=== PATIENT | female | born 1995 | race Caucasian/White ===

== ENCOUNTER 2021-10-06 17:53 | Inpatient (IN) | payer BC, MEDICAID ==
[2021-10-06] MEDS ORDERED: Calcium Gluc 4.6 MEQ/10 ML (100 MG/ML) SLOW IVP PRN (18:08)
[2021-10-06] MEDS ORDERED: Ondansetron PF 4 MG/2 ML Vial IVP PRN (18:08)
[2021-10-06] MEDS ORDERED: Promethazine HCl 25 MG/ML VIAL IM PRN (18:08)
[2021-10-06] MEDS ORDERED: Betamet Acet/Betamet Na Ph 30 MG/5 ML VIAL ONE (18:29)
[2021-10-06] MEDS ORDERED: Betamet Acet/Betamet Na Ph 30 MG/5 ML VIAL IM SCH (18:30)
[2021-10-06] MEDS ORDERED: Bicitra 30 ML UDCUP PO PRN (18:31)
[2021-10-06] MEDS ORDERED: Famotidine/PF 20 mg/2ml Vial SLOW IVP PRN (18:31)
[2021-10-06] MEDS ORDERED: Lactated Ringer's 1,000 ML IV SCH (18:45)
[2021-10-06] MEDS ORDERED: ceFAZolin 2 GM/Dextrose 50 ML 2 GM in Premix Bag 1 BAG IVPB SCH (18:45)
[2021-10-06] MEDS ORDERED: Labetalol HCl 100 MG/20 ML VIAL ONE ×2 (18:45→19:58)
[2021-10-06] MEDS ORDERED: Magnesium Sulfate 20 GM/WATER 500 ML BAG IVPB SCH (19:00)
[2021-10-06 19:06] LABS: Bilirubin Neg (Negative); Blood, Urine 50 (Negative); Clarity Clear (Clear); Glucose, Urine (Dipstick) 50 mg/dL (Negative); Ketone, Urine 5 mg/dL (Negative); Leukocyte Negative (Negative); Nitrite Negative (Negative); Protein, Urine (Dipstick) 100 mg/dl (Neg-Trace); Urobilinogen Normal mg/dL (Less than 2)
[2021-10-06 19:12] LABS: Squamous Epithelial 0-3 HPF (0-3); WBC/HPF 0-3 HPF (0-3)
[2021-10-06 19:13] LABS: Amphetamine Detected (NotDetected); Bacteria/HPF None Seen HPF (None Seen); Barbiturates Screen Not Detected (NotDetected); Benzodiazepine Screen Not Detected (NotDetected); Cocaine Metabolite Screen Not Detected (NotDetected); Methadone Not Detected (NotDetected); Methamphetamine Detected (NotDetected); Opiate Screen Not Detected (NotDetected); Oxycodone Screen Not Detected (NotDetected); Phencyclidine (PCP) Not Detected (NotDetected); THC/Cannabinoid Screen Not Detected (NotDetected); Tricyclic Screen Not Detected (NotDetected)
[2021-10-06 19:16] LABS: %Basophils 0.3 % (0.0-2.0); %Eosinophils 0.3 % (0.0-6.0); %Lymphocytes 7.5 % (18.0-47.0); %Monocytes 6.5 % (0.0-10.0); %Neutrophils 84.3 % (40.0-75.0); Hemoglobin 11.5 g/dL (12.0-15.5); Mean Corpuscular HGB CONC 33.8 g/dL (32.0-36.0); Mean Corpuscular Hemoglobin 27.9 pg (27.0-33.0); Mean Corpuscular Volume 82.5 fl (81.6-98.3); Mean Platelet Volume 12.1 fl (7.4-10.4); Platelet Count 205 10x3/uL (150-450); RBC Distribution Width 14.3 % (11.5-14.5); Red Blood Cell (RBC) Count 4.12 10x6/uL (3.90-5.03); White Blood Cell (WBC) Count 15.4 10x3/uL (3.5-10.5)
[2021-10-06 19:24] LABS: Creatinine, Urine 36.07 mg/dL (47-110)
[2021-10-06 19:44] LABS: ALT (SGPT) 13 U/L (8-55); AST (SGOT) 33 U/L (5-34); Alkaline Phosphatase 237 U/L (40-110); Anion Gap 14 mmol/L (10-20); BUN (Urea Nitrogen) 7 mg/dL (7.0-18.7); Bilirubin, Total 0.2 mg/dL (0.2-1.2); Calc. Creatinine Clearance 0 mL/min (70-130); Calcium 8.9 mg/dL (7.8-10.44); Carbon Dioxide 15 mmol/L (22-29); Chloride 107 mmol/L (98-107); Globulin 3.7 g/dL (2.4-3.5); Glucose 143 mg/dL (70-105); Potassium 3.4 mmol/L (3.5-5.1); Protein, Total 6.7 g/dL (6.0-8.3); Sodium 133 mmol/L (136-145)
[2021-10-06] MEDS ORDERED: Labetalol HCl 100 MG/20 ML VIAL SLOW IVP PRN (19:56)
[2021-10-06 20:02] LABS: HIV (1/2) Antibody/Antigen Non-Reactive (NonReactive); HIV 1/2 INDEX 0.06 S/CO (<1.00); Syphilis Antibody Nonreactive (Nonreactive); Syphilis Antibody Index 0.02 S/CO (<1.00 Non-Reactive)
[2021-10-06 20:22] LABS: Hep B Surf Ag Non-Reactive S/CO (NonReactive)
[2021-10-06 20:26] LABS: HBSAg Index 0.17 S/CO (0-0.99)
[2021-10-06 20:44] VITALS: BMI 46.8
[2021-10-06] MEDS: hydrALAZINE 20 MG/ML VIAL SLOW IVP PRN (22:08)
[2021-10-06 22:10] LABS: SARS-CoV-2 NAA Rapid Test Not Detected (NotDetected)
[2021-10-07] MEDS ORDERED: ceFAZolin 2 GM/Dextrose 50 ML IVPB ONE (05:58)
[2021-10-07] MEDS ORDERED: Misoprostol 200 MCG TAB PR PRN (06:44)
[2021-10-07] MEDS ORDERED: Carboprost 250 MCG/ML AMP IM SCH (06:45)
[2021-10-07] MEDS ORDERED: Tranexamic Acid 1,000 MG in Sodium Chloride 0.9% 250 ML 250 ML IVPB PRN ×2 (06:47→07:02)
[2021-10-07] MEDS ORDERED: NS w/ Oxytocin 30 units 1,000 ML IVPB SCH (07:00)
[2021-10-07 07:29] LABS: #Monocytes 0.5 10x3/uL (0.0-1.1); #Neutrophils 10.9 10x3/uL (1.5-8.4); %Basophils 0.1 % (0.0-2.0); %Lymphocytes 11.2 % (18.0-47.0); %Monocytes 3.9 % (0.0-10.0); %Neutrophils 83.9 % (40.0-75.0); Hemoglobin 10.3 g/dL (12.0-15.5); Mean Corpuscular HGB CONC 32.5 g/dL (32.0-36.0); Mean Corpuscular Hemoglobin 27.5 pg (27.0-33.0); Mean Corpuscular Volume 84.8 fl (81.6-98.3); Mean Platelet Volume 12.5 fl (7.4-10.4); Platelet Count 211 10x3/uL (150-450); RBC Distribution Width 14.6 % (11.5-14.5); Red Blood Cell (RBC) Count 3.74 10x6/uL (3.90-5.03); White Blood Cell (WBC) Count 12.9 10x3/uL (3.5-10.5)
[2021-10-07 07:32] LABS: INR-International Normal Ratio 0.9; PTT 27.7 sec (22.0-33.0); Prothrombin Time 10.4 sec (9.5-12.1)
[2021-10-07] MEDS ORDERED: Lidocaine 1% (PF) 30 ML VIAL SC PRN (07:32)
[2021-10-07 07:36] LABS: ALT (SGPT) 13 U/L (8-55); AST (SGOT) 31 U/L (5-34); Albumin 2.8 g/dL (3.5-5.0); Alkaline Phosphatase 182 U/L (40-110); Anion Gap 16 mmol/L (10-20); BUN (Urea Nitrogen) 9 mg/dL (7.0-18.7); Bilirubin, Total 0.3 mg/dL (0.2-1.2); Calc. Creatinine Clearance 231 mL/min (70-130); Calcium 8.4 mg/dL (7.8-10.44); Carbon Dioxide 15 mmol/L (22-29); Chloride 110 mmol/L (98-107); Globulin 3.4 g/dL (2.4-3.5); Glucose 108 mg/dL (70-105); Potassium 3.8 mmol/L (3.5-5.1); Protein, Total 6.2 g/dL (6.0-8.3); Sodium 137 mmol/L (136-145)
[2021-10-07] MEDS ORDERED: Penicillin G Potassium 5 MILL.UNITS VIAL ONE (07:43)
[2021-10-07] MEDS ORDERED: Penicillin G Potassium 5 MILL.UNITS in Sodium Chloride 0.9% 100 ML IVPB SCH (07:45)
[2021-10-07] MEDS ORDERED: NS w/ Oxytocin 30 units 500 ML IV SCH (07:45)
[2021-10-07] MEDS: Labetalol 100 MG TAB PO SCH ×2 (08:45→09:26)
[2021-10-07] MEDS: hydrALAZINE 20 MG/ML VIAL SLOW IVP PRN (09:46)
[2021-10-07 10:11] LABS: Troponin I 0.063 ng/mL (< 0.028)
[2021-10-07] MEDS ORDERED: Misoprostol 100 MCG TAB ONE (10:13)
[2021-10-07] MEDS ORDERED: Bicitra 30 ML UDCUP PO PRN (10:49)
[2021-10-07] MEDS ORDERED: Famotidine/PF 20 mg/2ml Vial SLOW IVP PRN (10:49)
[2021-10-07 10:50] LABS: Creatinine, Urine 147.66 mg/dL (47-110)
[2021-10-07] MEDS ORDERED: ceFAZolin 2 GM/Dextrose 50 ML 2 GM in Premix Bag 1 BAG IVPB SCH (11:00)
[2021-10-07] MEDS ORDERED: Dexamethasone 4 mg/ml Vial ONE (11:29)
[2021-10-07] MEDS ORDERED: Ondansetron PF 4 MG/2 ML Vial ONE (11:29)
[2021-10-07] MEDS ORDERED: Phenylephrine 10 MG/ML VIAL ONE (11:29)
[2021-10-07] MEDS ORDERED: Metoclopramide HCl 10 MG/2 ML VIAL ONE (11:29)
[2021-10-07] MEDS ORDERED: Oxytocin 10 UNITS/ML VIAL ONE (11:30)
[2021-10-07] MEDS ORDERED: Morphine PF 10 MG/10 ML VIAL ONE (11:39)
[2021-10-07] MEDS ORDERED: Penicillin G 2.5 MILL.units 2.5 MILL.UNITS in Premix Bag 1 BAG IVPB SCH (11:45)
[2021-10-07] MEDS ORDERED: Ketorolac Tromethamine 30 MG/ML VIAL ONE (12:40)
[2021-10-07 12:50] LABS: Critical Notified Whom: LABOR AND DELIVERY
[2021-10-07 12:51] LABS: Critical Notified Whom: LABOR AND DELIVERY
[2021-10-07] MEDS ORDERED: diphenhydrAMINE 50 MG/ML VIAL IVP PRN (12:54)
[2021-10-07] MEDS ORDERED: Promethazine HCl 25 MG/ML VIAL IM PRN (12:54)
[2021-10-07] MEDS ORDERED: Ondansetron PF 4 MG/2 ML Vial IVP PRN (12:54)
[2021-10-07] MEDS ORDERED: Ondansetron HCl/PF 4 MG/2 ML Vial IVP PRN (12:54)
[2021-10-07] MEDS ORDERED: Fentanyl 100 MCG/2 ML VIAL SLOW IVP PRN (12:54)
[2021-10-07] MEDS ORDERED: Promethazine HCl 25 MG SUPP PR PRN (12:54)
[2021-10-07] MEDS ORDERED: Naloxone HCl 0.4 mg/ml Vial IVP PRN ×2 (12:54)
[2021-10-07] MEDS ORDERED: Hydrocerin (Eucerin) Cream 120 gm Jar TOP PRN (12:54)
[2021-10-07] MEDS ORDERED: Meperidine HCl/PF 25 MG/ML VIAL SLOW IVP PRN (12:54)
[2021-10-07] MEDS ORDERED: Naloxone HCl 0.4 mg/ml Vial IV PRN (12:54)
[2021-10-07] MEDS ORDERED: Communication Order-Pharmacy FS SCH (13:00)
[2021-10-07 13:52] LABS: Hemoglobin A1c 5.4 % (4.0-6.0)
[2021-10-07 16:19] LABS: BUN (Urea Nitrogen) 11 mg/dL (7.0-18.7); Calc. Creatinine Clearance 223 mL/min (70-130)
[2021-10-07 16:28] LABS: Troponin I 0.043 ng/mL (< 0.028)
[2021-10-07 16:29] LABS: Sodium 134 mmol/L (136-145)
[2021-10-07] MEDS ORDERED: Vancomycin HCl 2 GM, Admixture Fee 1 EACH in Sodium Chloride 0.9% 500 ML IVPB SCH (16:30)
[2021-10-07] MEDS: Magnesium Sulfate 20 gm/500 ml 20 GM/500 ML BAG IVPB SCH (16:41)
[2021-10-07 17:31] LABS: INR-International Normal Ratio 0.9; PTT 27.4 sec (22.0-33.0); Prothrombin Time 9.9 sec (9.5-12.1)
[2021-10-07] MEDS ORDERED: hydrALAZINE 20 MG/ML VIAL SLOW IVP PRN ×2 (17:49→17:55)
[2021-10-07 18:05] LABS: Hep C IgG Ab Non-Reactive (NonReactive); Hep C Index 0.07 S/CO (0-0.79)
[2021-10-07 18:06] LABS: D-Dimer Test 0.92 mg/L FEU (0.19-0.50)
[2021-10-07] MEDS ORDERED: Acetaminophen 325 MG TAB PO PRN (18:29)
[2021-10-07] MEDS ORDERED: HYDROcodone/Acetaminophen 5/325 mg Tablet PO PRN (18:29)
[2021-10-07] MEDS ORDERED: Ketorolac Tromethamine 30 MG/ML VIAL IVP PRN (18:35)
[2021-10-07] MEDS ORDERED: Atorvastatin Calcium 40 MG TAB PO SCH (21:00)
[2021-10-07] MEDS ORDERED: Labetalol 100 MG TAB PO SCH (21:00)
[2021-10-08] MEDS: Enoxaparin Sodium 60 MG/0.6 ML SYRINGE SC SCH ×3 (00:11→23:31)
[2021-10-08] MEDS ORDERED: HYDROcodone/Acetaminophen 5/325 mg Tablet PO PRN (01:00)
[2021-10-08] MEDS: Magnesium Sulfate 20 gm/500 ml 20 GM/500 ML BAG IVPB SCH ×2 (02:39→11:05)
[2021-10-08 06:11] LABS: INR-International Normal Ratio 0.9; PTT 29.8 sec (22.0-33.0); Prothrombin Time 10.1 sec (9.5-12.1)
[2021-10-08 06:40] LABS: ALT (SGPT) 12 U/L (8-55); AST (SGOT) 23 U/L (5-34); Albumin 2.6 g/dL (3.5-5.0); Alkaline Phosphatase 159 U/L (40-110); Anion Gap 11 mmol/L (10-20); BUN (Urea Nitrogen) 13 mg/dL (7.0-18.7); Bilirubin, Total 0.2 mg/dL (0.2-1.2); Calc. Creatinine Clearance 217 mL/min (70-130); Calcium 7.1 mg/dL (7.8-10.44); Carbon Dioxide 20 mmol/L (22-29); Cardiac Risk 6.4 (Less than 4.5); Chloride 109 mmol/L (98-107); Cholesterol 185 mg/dl (< 200 Desired); Globulin 3.1 g/dL (2.4-3.5); Glucose 116 mg/dL (70-105); HDL Cholesterol 29 mg/dL (>60 Neg Risk); LDL Cholesterol, Calculated 97 mg/dL; Potassium 4.4 mmol/L (3.5-5.1); Protein, Total 5.7 g/dL (6.0-8.3); Sodium 136 mmol/L (136-145); Triglycerides 294 mg/dL (Less than 150); Uric Acid 8.9 mg/dL (2.6-6.0)
[2021-10-08] MEDS ORDERED: Furosemide 20 MG/2 ML VIAL SLOW IVP SCH (07:00)
[2021-10-08 07:33] LABS: #Monocytes 1.2 10x3/uL (0.0-1.1); #Neutrophils 11.3 10x3/uL (1.5-8.4); %Basophils 0.1 % (0.0-2.0); %Lymphocytes 14.3 % (18.0-47.0); %Monocytes 7.9 % (0.0-10.0); %Neutrophils 76.6 % (40.0-75.0); Hemoglobin 9.3 g/dL (12.0-15.5); Mean Corpuscular HGB CONC 32.3 g/dL (32.0-36.0); Mean Corpuscular Hemoglobin 27.8 pg (27.0-33.0); Mean Corpuscular Volume 86.2 fl (81.6-98.3); Mean Platelet Volume 12.5 fl (7.4-10.4); Platelet Count 247 10x3/uL (150-450); RBC Distribution Width 15.5 % (11.5-14.5); Red Blood Cell (RBC) Count 3.34 10x6/uL (3.90-5.03); White Blood Cell (WBC) Count 14.8 10x3/uL (3.5-10.5)
[2021-10-08 08:42] LABS: Magnesium 6.3 mg/dL (1.6-2.6)
[2021-10-08] MEDS ORDERED: Labetalol HCl 100 MG/20 ML VIAL SLOW IVP PRN (09:42)
[2021-10-08] MEDS: Labetalol HCl 100 MG/20 ML VIAL SLOW IVP PRN ×10 (10:36→19:29)
[2021-10-08] MEDS: Prenatal Vitamin 1 TAB PO SCH (11:04)
[2021-10-08] MEDS: Ferrous Sulfate 325 MG TAB PO SCH ×3 (11:04→19:55)
[2021-10-08] MEDS: Aspirin 81 mg Enteric Coated Tablet PO SCH (11:25)
[2021-10-08] MEDS ORDERED: HumaLOG 300 UNITS/3 ML VIAL SC PRN ×2 (12:15)
[2021-10-08] MEDS ORDERED: Dextrose 5% in Water 1,000 ML IV PRN (12:15)
[2021-10-08] MEDS ORDERED: Dextrose 50% Abboject 50 ML SYRINGE SLOW IVP PRN (12:15)
[2021-10-08] MEDS ORDERED: Magnesium Sulfate 20 GM/WATER 500 ML BAG IVPB PRN (13:00)
[2021-10-08] MEDS ORDERED: Labetalol 100 MG TAB PO SCH (21:00)
[2021-10-08] MEDS: Atorvastatin Calcium 40 MG TAB PO SCH (21:26)
[2021-10-08] MEDS: HYDROcodone/Acetaminophen 5/325 mg Tablet PO PRN (21:38)
[2021-10-09] MEDS: Labetalol HCl 100 MG/20 ML VIAL SLOW IVP PRN ×3 (01:20→05:07)
[2021-10-09] MEDS ORDERED: Furosemide 20 MG/2 ML VIAL SLOW IVP SCH (01:30)
[2021-10-09] MEDS ORDERED: hydrALAZINE 20 MG/ML VIAL ONE ×2 (03:13→03:55)
[2021-10-09] MEDS ORDERED: niCARdipine 25 MG in Sodium Chloride 0.9% 250 ML 250 ML IVPB SCH (04:45)
[2021-10-09] MEDS ORDERED: Labetalol 100 MG TAB PO SCH (06:00)
[2021-10-09] MEDS ORDERED: Labetalol HCl 200 MG TAB PO SCH ×2 (06:30→15:00)
[2021-10-09] MEDS: Aspirin 81 mg Enteric Coated Tablet PO SCH (08:22)
[2021-10-09] MEDS: Ferrous Sulfate 325 MG TAB PO SCH ×2 (08:22→21:47)
[2021-10-09] MEDS: Prenatal Vitamin 1 TAB PO SCH (08:36)
[2021-10-09] MEDS ORDERED: hydrALAZINE 20 MG/ML VIAL SLOW IVP PRN (09:23)
[2021-10-09] MEDS: Labetalol HCl 200 MG TAB PO SCH ×2 (11:59→21:47)
[2021-10-09] MEDS: HYDROcodone/Acetaminophen 5/325 mg Tablet PO PRN ×2 (14:56→21:54)
[2021-10-09 18:41] LABS: Cardiolipin IgA Ab 1.3 APL-U/mL (<14 Negative); Cardiolipin IgG Ab Less than 0.5 GPL-U/mL (<10 Negative); Cardiolipin IgM Ab Less than 0.8 MPL-U/mL (<10 Negative); EliA APS New Method **** NEW METHOD ****
[2021-10-09 18:44] LABS: EliA Thy New Method **** NEW METHOD ****; Thyroid Peroxidase IgG Ab Less than 4.0 IU/mL (<25 Normal)
[2021-10-09] MEDS: Atorvastatin Calcium 40 MG TAB PO SCH (21:47)
[2021-10-10] MEDS: Enoxaparin Sodium 60 MG/0.6 ML SYRINGE SC SCH (01:10)
[2021-10-10] MEDS: Labetalol HCl 200 MG TAB PO SCH (05:17)
[2021-10-10 05:37] LABS: Chlam.trachomatis by PCR,Urine Not Detected (NotDetected)
[2021-10-10] MEDS: Prenatal Vitamin 1 TAB PO SCH (08:20)
[2021-10-10 09:27] VITALS: TEMP 97.9
[2021-10-10] MEDS: Ferrous Sulfate 325 MG TAB PO SCH (11:52)
[2021-10-10] MEDS: Aspirin 81 mg Enteric Coated Tablet PO SCH (11:52)
[2021-10-10 12:24] VITALS: BP 191/101
[2021-10-10] MEDS ORDERED: Labetalol HCl 200 MG TAB PO SCH ×2 (13:00→21:00)
[2021-10-11] MEDS ORDERED: Labetalol 100 MG TAB PO SCH (21:00)
[2021-10-13 12:43] LABS: Factor VIII Test 391.7 % ACTIVE (56-157); HEX PHOS LA Tube 1 30.9 SEC; HEX PHOS LA Tube 2 29.5 SEC; Hexagonal Phospholipid Neut 1.4 SEC (0-8.0); Protein C Activity 118 % (78-152)
== END 2021-10-11 01:16 | disposition home or self-care (01) | DRG 786 ==
LOC: CSHLD 17:53 → CSHIMCU 10-09 06:14 → CSHPP 10-09 13:31
PROVIDERS: ADMIT Obstetrics & Gynecology; ATTEND Family Medicine
PROC: 10D00Z1 Extraction of Products of Conception, Low, Open Approach (ICD-10-PCS; principal; 2021-10-07)
DX: O15.1 Eclampsia complicating labor (principal); O99.42 Diseases of the circulatory system complicating childbirth; I63.9 Cerebral infarction, unspecified; I16.1 Hypertensive emergency; O99.324 Drug use complicating childbirth; I31.3 Pericardial effusion (noninflammatory); Z20.822 Contact with and (suspected) exposure to COVID-19; Z3A.33 33 weeks gestation of pregnancy; Z37.0 Single live birth; F17.210 Nicotine dependence, cigarettes, uncomplicated; O99.334 Smoking (tobacco) complicating childbirth; O99.214 Obesity complicating childbirth; O10.02 Pre-existing essential hypertension complicating childbirth; O99.892 Other specified diseases and conditions complicating childbirth; F15.10 Other stimulant abuse, uncomplicated; O26.893 Other specified pregnancy related conditions, third trimester; O76 Abnormality in fetal heart rate and rhythm complicating labor and delivery; E87.70 Fluid overload, unspecified; Z67.91 Unspecified blood type, Rh negative; Z86.32 Personal history of gestational diabetes; Z71.51 Drug abuse counseling and surveillance of drug abuser
CPT/HCPCS: 36415; 36416; 51702; 70450; 70551; 71275; 76815; 80053; 80061; 80306; 81001; 82550; 82570; 82805; 83036; 83090; 83615; 83735; 83880; 84156; 84443; 84484; 84550; 85025; 85240; 85300; 85303; 85305; 85307; 85379; 85461; 85598; 85610; 85730; 86147; 86376; 86762; 86780; 86803; 86850; 86900; 86901; 87081; 87340; 87389; 87491; 87591; 88307; 90384; 93005; 93010; 93306; 93880; 94760; 94799; 96372; J0360; J1100; J1650; J1885; J1940; J2274; J2370; J2405; J2540; J2590; J2765; J3370; J3475; J3490; J7030; U0002

== ENCOUNTER 2022-01-12 13:58 | Emergency (ER) | payer BC, OTHER ==
[2022-01-12] MEDS ORDERED: Famotidine 20 MG TAB ONE (16:12)
[2022-01-12] MEDS ORDERED: diphenhydrAMINE 50 MG CAP ONE (16:12)
[2022-01-12] MEDS ORDERED: Dexamethasone 20 MG/5 ML VIAL ONE (16:13)
== END 2022-01-12 16:17 | disposition home or self-care (01) ==
LOC: CSHERS 13:58
DX: L50.0 Allergic urticaria (principal); F17.210 Nicotine dependence, cigarettes, uncomplicated; F17.290 Nicotine dependence, other tobacco product, uncomplicated
CPT/HCPCS: 99283; J1100

== ENCOUNTER 2023-01-16 10:49 | Inpatient (IN) | payer OTHER ==
[2023-01-16] MEDS ORDERED: Diphenoxylate HCl/Atropine Tablet PO PRN (11:33)
[2023-01-16] MEDS ORDERED: Carboprost 250 MCG/ML AMP IM PRN (11:33)
[2023-01-16] MEDS ORDERED: Promethazine HCl 25 MG/ML VIAL IM PRN ×3 (11:33→18:27)
[2023-01-16] MEDS ORDERED: Misoprostol 200 MCG TAB PR PRN ×2 (11:33→18:27)
[2023-01-16] MEDS ORDERED: Methylergonovine 0.2 MG/ML VIAL IM PRN ×2 (11:33→18:27)
[2023-01-16] MEDS ORDERED: Bicitra 30 ML UDCUP PO PRN (11:33)
[2023-01-16] MEDS ORDERED: Famotidine/PF 20 mg/2ml Vial SLOW IVP PRN (11:33)
[2023-01-16] MEDS ORDERED: Ondansetron PF 4 MG/2 ML Vial IVP PRN ×3 (11:33→18:27)
[2023-01-16] MEDS ORDERED: hydrALAZINE 20 MG/ML VIAL SLOW IVP PRN ×2 (11:33→18:27)
[2023-01-16] MEDS ORDERED: Tranexamic Acid 1,000 MG/10 ML VIAL IVP PRN (11:33)
[2023-01-16] MEDS ORDERED: NS w/ Oxytocin 30 units 500 ML IV SCH ×2 (11:45→18:27)
[2023-01-16] MEDS ORDERED: Lactated Ringer's 1,000 ML IV SCH (11:45)
[2023-01-16] MEDS ORDERED: CEFAZOLIN 2 GM in Sodium Chloride 0.9% 100 ML IVPB SCH (11:45)
[2023-01-16] MEDS ORDERED: Azithromycin 500 MG in Sodium Chloride 0.9% 250 ML 250 ML IVPB SCH (11:45)
[2023-01-16 12:24] LABS: Hemoglobin 10.6 g/dL (12.0-15.5); Mean Corpuscular HGB CONC 32.8 g/dL (32.0-36.0); Mean Corpuscular Hemoglobin 26.4 pg (27.0-33.0); Mean Corpuscular Volume 80.3 fl (81.6-98.3); Mean Platelet Volume 10.6 fl (7.4-10.4); Platelet Count 275 10x3/uL (150-450); RBC Distribution Width 14.2 % (11.5-14.5); Red Blood Cell (RBC) Count 4.02 10x6/uL (3.90-5.03); White Blood Cell (WBC) Count 11.4 10x3/uL (3.5-10.5)
[2023-01-16 12:57] LABS: HIV (1/2) Antibody/Antigen Non-Reactive (NonReactive); HIV 1/2 INDEX 0.06 S/CO (<1.00)
[2023-01-16 12:58] LABS: Syphilis Antibody Nonreactive (Nonreactive); Syphilis Antibody Index 0.02 S/CO (<1.00 Non-Reactive)
[2023-01-16] MEDS ORDERED: Azithromycin 500 MG VIAL ONE (13:27)
[2023-01-16 13:57] LABS: Fetal Membranes Rupture RUPTURE DETECTED (No Rupture)
[2023-01-16] MEDS ORDERED: Morphine PF 10 MG/10 ML VIAL ONE (14:30)
[2023-01-16] MEDS ORDERED: Ondansetron PF 4 MG/2 ML Vial ONE (14:31)
[2023-01-16] MEDS ORDERED: Dexamethasone 4 mg/ml Vial ONE (14:31)
[2023-01-16] MEDS ORDERED: Fentanyl 100 MCG/2 ML VIAL ONE (14:31)
[2023-01-16] MEDS ORDERED: Phenylephrine 10 MG/ML VIAL ONE (14:31)
[2023-01-16 15:13] LABS: HBSAg Index 0.13 S/CO (0-0.99); Hep B Surf Ag - L&D Non-Reactive S/CO (NonReactive)
[2023-01-16] MEDS ORDERED: Oxytocin 10 UNITS/ML VIAL ONE (15:53)
[2023-01-16 16:03] VITALS: BMI 43.0
[2023-01-16] MEDS ORDERED: Fentanyl 100 MCG/2 ML VIAL SLOW IVP PRN (16:20)
[2023-01-16] MEDS ORDERED: Moisturizing Cream (Eucerin) 113 GM JAR TOP PRN (16:20)
[2023-01-16] MEDS ORDERED: Meperidine HCl/PF 25 MG/ML VIAL SLOW IVP PRN (16:20)
[2023-01-16] MEDS ORDERED: Promethazine HCl 25 MG SUPP PR PRN (16:20)
[2023-01-16] MEDS ORDERED: HYDROmorphone 2 MG/ML VIAL SLOW IVP PRN (16:20)
[2023-01-16] MEDS ORDERED: diphenhydrAMINE 50 MG/ML VIAL IVP PRN (16:20)
[2023-01-16] MEDS ORDERED: Naloxone HCl 0.4 mg/ml Vial IVP PRN ×2 (16:20)
[2023-01-16] MEDS ORDERED: Naloxone HCl 0.4 mg/ml Vial IV PRN (16:20)
[2023-01-16] MEDS ORDERED: Ondansetron HCl/PF 4 MG/2 ML Vial IVP PRN (16:20)
[2023-01-16] MEDS ORDERED: Communication Order-Pharmacy FS SCH (16:30)
[2023-01-16] MEDS ORDERED: Ketorolac Tromethamine 30 MG/ML VIAL IVP SCH (16:30)
[2023-01-16] MEDS: Ketorolac Tromethamine 30 MG/ML VIAL IVP PRN (17:03)
[2023-01-16] MEDS ORDERED: Boostrix 0.5 ML (Tdap) VIAL (>/=7 yrs of age) IM ONE (18:27)
[2023-01-16] MEDS ORDERED: diphenhydrAMINE 25 MG CAP PO PRN (18:27)
[2023-01-16] MEDS ORDERED: Lanolin Ointment 7 GM TUBE TOP PRN (18:27)
[2023-01-16] MEDS: Simethicone Chewable 80 MG TAB PO PRN (21:46)
[2023-01-16] MEDS: Atorvastatin Calcium 40 MG TAB PO SCH (21:46)
[2023-01-16] MEDS: Docusate 100 MG CAP PO PRN (21:46)
[2023-01-16] MEDS: Ferrous Sulfate 325 MG TAB PO SCH (21:47)
[2023-01-17] MEDS: Ketorolac Tromethamine 30 MG/ML VIAL IVP PRN ×2 (00:05→05:36)
[2023-01-17] MEDS ORDERED: HYDROcodone/Acetaminophen 5/325 mg Tablet PO PRN (04:30)
[2023-01-17] MEDS: HYDROcodone/Acetaminophen 5/325 mg Tablet PO PRN ×2 (05:35→16:18)
[2023-01-17 07:22] LABS: Hemoglobin 8.5 g/dL (12.0-15.5); Mean Corpuscular HGB CONC 32.9 g/dL (32.0-36.0); Mean Corpuscular Hemoglobin 26.5 pg (27.0-33.0); Mean Corpuscular Volume 80.4 fl (81.6-98.3); Mean Platelet Volume 11.3 fl (7.4-10.4); Platelet Count 243 10x3/uL (150-450); RBC Distribution Width 14.1 % (11.5-14.5); Red Blood Cell (RBC) Count 3.21 10x6/uL (3.90-5.03); White Blood Cell (WBC) Count 9.4 10x3/uL (3.5-10.5)
[2023-01-17 07:51] LABS: ALT (SGPT) 10 U/L (8-55); AST (SGOT) 22 U/L (5-34); Albumin 2.3 g/dL (3.5-5.0); Alkaline Phosphatase 119 U/L (40-110); Anion Gap 14 mmol/L (10-20); BUN (Urea Nitrogen) 7 mg/dL (7.0-18.7); Bilirubin, Total 0.2 mg/dL (0.2-1.2); Calc. Creatinine Clearance 236 mL/min (70-130); Calcium 8.3 mg/dL (7.8-10.44); Carbon Dioxide 16 mmol/L (22-29); Chloride 113 mmol/L (98-107); Estimated GFR 127; Globulin 2.8 g/dL (2.4-3.5); Glucose 81 mg/dL (70-105); Potassium 3.7 mmol/L (3.5-5.1); Protein, Total 5.1 g/dL (6.0-8.3); Sodium 139 mmol/L (136-145)
[2023-01-17] MEDS: Ferrous Sulfate 325 MG TAB PO SCH ×2 (08:19→21:29)
[2023-01-17] MEDS: Prenatal Vitamin 1 TAB PO SCH (08:19)
[2023-01-17] MEDS: Aspirin 81 mg Enteric Coated Tablet PO SCH (09:49)
[2023-01-17] MEDS: Labetalol HCl 100 MG TAB PO SCH ×2 (09:49→21:43)
[2023-01-17] MEDS: Ibuprofen 800 MG TAB PO SCH (21:29)
[2023-01-17] MEDS: Docusate 100 MG CAP PO PRN (21:29)
[2023-01-17] MEDS: Atorvastatin Calcium 40 MG TAB PO SCH (21:29)
[2023-01-17] MEDS: Simethicone Chewable 80 MG TAB PO PRN (21:29)
[2023-01-18] MEDS: Ibuprofen 800 MG TAB PO SCH ×2 (04:58→13:30)
[2023-01-18] MEDS: Ferrous Sulfate 325 MG TAB PO SCH (08:45)
[2023-01-18] MEDS: Labetalol HCl 100 MG TAB PO SCH (08:45)
[2023-01-18] MEDS: Prenatal Vitamin 1 TAB PO SCH (08:45)
[2023-01-18] MEDS: Aspirin 81 mg Enteric Coated Tablet PO SCH (08:45)
[2023-01-18 11:38] VITALS: BP 140/87; TEMP 97.8
== END 2023-01-18 16:00 | disposition home or self-care (01) | DRG 788 ==
LOC: CSHLD/OP 10:49 → CSHLD 13:49 → CSHPP 18:25
PROVIDERS: ADMIT Obstetrics & Gynecology; ATTEND Obstetrics & Gynecology
PROC: 10D00Z1 Extraction of Products of Conception, Low, Open Approach (ICD-10-PCS; principal; 2023-01-16)
DX: O42.02 Full-term premature rupture of membranes, onset of labor within 24 hours of rupture (principal); Z3A.37 37 weeks gestation of pregnancy; Z37.0 Single live birth; O26.893 Other specified pregnancy related conditions, third trimester; Z67.11 Type A blood, Rh negative; Z90.49 Acquired absence of other specified parts of digestive tract; Z79.82 Long term (current) use of aspirin; Z79.899 Other long term (current) drug therapy; Z86.73 Personal history of transient ischemic attack (TIA), and cerebral infarction without residual deficits; O34.211 Maternal care for low transverse scar from previous cesarean delivery
CPT/HCPCS: 36415; 51702; 80053; 82570; 84112; 84156; 85027; 86762; 86780; 86850; 86900; 86901; 87340; 87389; 99285; J0456; J1100; J1885; J2274; J2370; J2405; J2590; J3010; J3490; J7050; S0028